=== PATIENT | female | born 1955 ===

== ENCOUNTER 2017-09-15 06:20 | Day surgery (SDC) | payer OTHER ==
[~2017-09-15 06:20] MED LIST: COZAAR50 MG PO; METOPOROL PO; SYNTH PO; ZOCOR20 MG PO; [UNRECOGNIZED DRUG - OTHER]
[2017-09-15] MEDS ORDERED: ULTRACET PO (11:33)
[2017-09-15] MEDS ORDERED: MACROBID 100 M100 MG PO (11:34)
== END 2017-09-15 16:00 | disposition home or self-care (01) ==
LOC: CIR.AMB 06:20 → AMB-ENDOS 09:30 → CIR.AMB 09:30
DX: N81.3 Complete uterovaginal prolapse (principal)